=== PATIENT | female | born 1950 | race Caucasian/White ===

== ENCOUNTER → 2017-07-28 | Outpatient (CLI) | payer MEDICARE, BC ==
[2016-02-05 11:14] VITALS: BMI 23.7
[~2017-07-28] MED LIST: ASPI-757 PO; CHOL500045 PO; CIPR-214 PO; CLIN300C99 PO; CYAN250T15 PO; DEX4 PO; DOCU-202 PO; DOCU-416 PO; FAMO20TA28 PO; FLUC200T52 PO; GABA-547 PO; HYDR25CA83 PO; LETR2.5T4 PO; LOR1 PO; LUTE20TA PO; MULT1TAB64 PO; ONDA8TAB94 PO; OXYC-373 PO; PEN400 PO; PER PO; POTA20TA10 PO; PYRI100T57 PO; PYRI100T59 PO; RISE35TA PO; SILV20CR2 TP; VITA-139 PO; [UNRECOGNIZED DRUG - OTHER]
--- NOTE | 2017-07-31 09:43 | RADIOLOGY IMAGING REPORT ---
FACILITY: [facility] PATIENT NAME: LLOYD DIANA : [id number] MR: [id number] V: [id number] EXAM DATE: [id number] ORDERING PHYSICIAN: PATRICK MILLER TECHNOLOGIST: Bianca Evans PROCEDURE:RIGHT DIGITAL DIAGNOSTIC MAMMOGRAM WITH CAD AND 3D BREAST TOMOSYNTHESIS. COMPARISON: Prior mammograms dated 07/20/16 and 07/27/15, INDICATIONS:PRIOR HISTORY OF BREAST CANCER. FINDINGS: A moderate amount of fibroglandular tissue is seen throughout the right breast. The parenchymal pattern has remained stable when allowing for difference in mammographic technique and patient positioning. There is no evidence of malignant appearing mass, malignant appearing calcification or secondary sign of malignancy throughout the right breast. DIAGNOSTIC CATEGORY 1--NEGATIVE. RECOMMENDATIONS: ROUTINE MAMMOGRAM AND CLINICAL EVALUATION. IMPRESSION: Bi-RADS 1: No significant abnormality of the right breast is seen. Dictated by: Tangela Morin M.D. on 07/28/2017 at 15:27 Transcribed by: BRIA on 07/30/2017 at 15:12 Approved by: Tangela Mroin M.D. on 07/31/2017 at 9:41 [facility]
== END ==
LOC: MAMO 12:57
PROVIDERS: ATTEND Radiology Radiation Oncology
DX: C50.912 Malignant neoplasm of unspecified site of left female breast (principal)
CPT/HCPCS: 77065

== ENCOUNTER 2017-08-01 10:30 | Outpatient (RCR) | payer MEDICARE, BC ==
[2016-02-05 11:14] VITALS: BMI 23.7
[2016-05-24 09:04] VITALS: BP 118/76
[~2017-08-01 10:30] MED LIST changes: +ALTEPLASE RECOMB 2 MG VIAL IVP PRN; +DEXTROSE 5%(*) 100 ML BAG 100 ML IVPB PRN; +HEPARIN FLSH (PORT) 500 UN/5ML IVP PRN; +LIDOCAINE/SOD BICARB 8.4% SYR ID PRN; +NS(*) 0.9% 100 ML BAG 100 ML IVPB PRN; +NS(*) 0.9% 500 ML BAG 500 ML IV PRN; +WATER STERILE 10 ML VIAL IVP PRN
== END 2017-09-13 ==
LOC: RAON 10:30
PROVIDERS: ATTEND Nurse Practitioner Family
DX: Z85.3 Personal history of malignant neoplasm of breast (principal); Z92.3 Personal history of irradiation; Z92.21 Personal history of antineoplastic chemotherapy; Z79.899 Other long term (current) drug therapy
CPT/HCPCS: G0463; J1642; 96523; 99212

== ENCOUNTER 2017-10-17 09:30 | Outpatient (RCR) | payer MEDICARE, BC ==
[2016-02-05 11:14] VITALS: Wt 78.2 kg
[2017-09-05 15:21] VITALS: BP 132/68
[2017-09-05 15:29] LABS: PLATELET COUNT, AUTOMATED 251 K/uL (150-450)
[2017-09-07 13:36] VITALS: BP 115/76
--- NOTE | 2017-09-08 08:48 | ONCOLOGY FOLLOW UP NOTE ---
EVENT DATE: September 07, 2017 DIAGNOSIS Stage IIIA left breast cancer. CHIEF COMPLAINT The patient is here today for followup of her left breast cancer on adjuvant hormonal therapy. ONCOLOGY HISTORY The patient is a 67-year-old postmenopausal woman with insignificant past medical history except for partial hysterectomy with left ovary left intact, done in 1978, who palpated a mass in the left breast recently. Bilateral diagnostic digital mammogram done on July 27, 2015 did reveal at least two, possibly three masses, which are extremely dense, irregular and spiculated, one measuring 2.8 cm in diameter, one measuring approximately 2 cm in diameter with fibrotic stranding toward the left pectoralis muscle, which appears to be tented anteriorly toward the mass. There is also nipple retraction on the left and skin indentation along the medial aspect of the left breast. Left breast ultrasound done on July 27, 2015 did reveal several irregular shadowing hypoechoic masses. Ultrasound, core needle biopsy of the two separate masses in the left breast, one in the 9 o'clock lateral position and one in the 10 o' clock medial position. Bilateral breast MRI done on August 06, 2015 revealed two spiculated masses seen on the medial left breast, one at 9 o'clock extending to the skin where there was adjuvant skin thickening and skin retraction. This measured 2 cm. The second lesion at 10 o'clock measured 2.7 cm with suggestion of several adjuvant small satellite lesions as well. The 10 o'clock mass is tenting the left pectoralis muscle anteriorly, but no abnormal enhancement identified within the pectoralis muscle; although immediately deep to the area of tenting there abnormal enhancement seen at the left costochondral articulation, worrisome for metastasis in the left rib/cartilage. There appears to be nipple retraction to the left. No axillary lymphadenopathy or internal mammary adenopathy seen. The patient started neoadjuvant chemotherapy with dose dense AC with Adriamycin and cyclophosphamide on August 27, [address] Diaz, her surgeon. The patient completed four courses of dose dense AC chemotherapy on October 08, 2015. The patient started adjuvant weekly Taxol therapy on October 22, 2015. The patient completed twelve weekly courses of Taxol on January 08, 2016. Following neoadjuvant chemotherapy, the patient had left breast mastectomy and left axillary lymph node dissection done on February 04, 2016. The pathology came back positive for 2.5 cm invasive, poorly differentiated ductal carcinoma. Twelve lymph nodes sampled were positive for metastasis, so the patient's tumor was staged as stage IIIA (pT2 pN2a cM0). The patient started treatment with letrozole on March 17, 2016. HISTORY OF PRESENT ILLNESS Patient is here today for followup of her left breast cancer on adjuvant hormonal therapy. She is doing fine currently. She has some nasal discharge. She has pain in her neck. She has tingling and numbness in the hands and feet. She is weak, tired and fatigued. PAST MEDICAL HISTORY Insignificant. PAST SURGICAL HISTORY 1. Partial hysterectomy with left ovary still intact, done in 1978. 2. Left breast mastectomy and left axillary lymph node dissection done on February 04, 2016. SOCIAL HISTORY The patient is . She has three children. 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 She has about one drink per week. Never smoked. No abuse of illicit drugs. FAMILY HISTORY Negative for cancer or blood diseases. CURRENT MEDICATIONS 1. Zofran 8 mg q.8h. p.r.n. for nausea and vomiting. 2. Ativan 1 mg q.6h. p.r.n. for nausea and vomiting. 3. Compazine 10 mg q.6h. p.r.n. for nausea and vomiting. 4. Letrozole 2.5 mg daily. 5. Vitamin D supplement. 6. Actonel 35 mg weekly. ALLERGIES No known drug allergies. REVIEW OF SYSTEMS CONSTITUTIONAL: Patient has hot flashes with night sweating. HEENT: Ears: No tinnitus or hearing problem. Nose: She has nasal discharge. No epistaxis. Throat: No sore throat or mouth ulcers. Eyes: No diplopia or visual changes. RESPIRATORY: She has cough due to allergy. CARDIOVASCULAR: No chest pain, orthopnea, or paroxysmal nocturnal dyspnea (PND) . No edema. No palpitations. GASTROINTESTINAL: She has intermittent diarrhea. GENITOURINARY: No hematuria or dysuria. MUSCULOSKELETAL: She has pain in the neck. NEUROLOGICAL: She has tingling and numbness in the hands and feet. HEMATOLOGIC/LYMPHATIC: She bruises easily. She is weak, tired and fatigued. SKIN: No skin rash or lumps. PSYCHIATRIC: No anxiety or depression. PHYSICAL EXAMINATION GENERAL: Looks stable. Well-developed, well-nourished, and in no acute distress. VITAL SIGNS: Blood pressure 115/76, pulse 85 per minute, respirations 16 per minute, temperature 97, pulse ox 93% on room air. HEENT: Head: Atraumatic. No sinus tenderness to palpation. Eyes: No icterus or conjunctivitis. Mouth and throat: No oral thrush or mucositis. NECK: Supple. No cervical or supraclavicular lymphadenopathy. LUNGS: Clear to auscultation and percussion bilaterally. HEART: Regular rate and rhythm. No gallops, murmurs, clicks or rubs. ABDOMEN: Soft and lax. No tenderness. No hepatosplenomegaly. No masses. EXTREMITIES: No cyanosis, clubbing or edema. LYMPHATICS: No peripheral lymphadenopathy. NEUROLOGICAL: Conscious, alert and oriented times three. No focal motor or sensory deficits. PSYCHIATRIC: Mood and affect appear normal. SKIN: No skin rash, bruise or purpuric eruption. DIAGNOSTIC DATA CBC showed a white count of 6.4, hemoglobin 14.6, hematocrit 41.5, platelets 251 ,000. Chem panel is normal. CA 27-29 is pending. ASSESSMENT 1. Stage IIIA (pT2 pN2a cM0) left breast cancer, ER/ID positive, HER2/joe negative by FISH. Patient received neoadjuvant chemotherapy with four cycles of dose-dense AC with adriamycin and cyclophosphamide between August 23, 2015 through October 08, 2015. This was followed by 12 weekly doses of Taxol, received between October 22, 2015 through January 08, 2016. Patient after that had left breast mastectomy and left axillary lymph node dissection done February 04, 2016. She started adjuvant hormonal therapy with Letrozole 2.5 mg daily on March 17, 2016. She is doing fine currently except for residual neuropathy from her previous chemotherapy. I am planning to continue Letrozole 2.5 mg daily. I will see her again in three months with CBC, chem panel and CA 27-29. 2. Osteopenia by DEXA scan March 14, 2016. Currently on vitamin D supplement, calcium supplement and Actonel 35 mg weekly. I am planning to repeat her DEXA scan in March this year. 3. Vitamin D deficiency, on vitamin D supplement 2000 units daily. 4. Chemotherapy-induced neuropathy, stable. Will continue to monitor. PLAN 1. Letrozole 2.5 mg daily. 2. Vitamin D 2000 units daily. 3. Actonel 35 mg weekly. 4. Patient is to return in three months with CBC, chem panel and CA 27-29. 5. Patient is to contact us for any new concerns or complaints. [facility]
[~2017-10-17 09:30] MED LIST changes: -PEN400 PO; +PENT400T57 PO
[2017-10-17 09:35] VITALS: BP 122/89
[2017-10-18] MEDS ORDERED: LETR2.5T4 PO (14:33)
== END 2017-10-20 16:16 | disposition home or self-care (01) ==
LOC: SPU 09:30
PROVIDERS: ATTEND Nurse Practitioner Family
DX: C50.912 Malignant neoplasm of unspecified site of left female breast (principal); Z17.0 Estrogen receptor positive status [ER+]; Z92.21 Personal history of antineoplastic chemotherapy; E55.9 Vitamin D deficiency, unspecified; G62.0 Drug-induced polyneuropathy; R53.1 Weakness; R53.83 Other fatigue; Z78.0 Asymptomatic menopausal state; Z79.899 Other long term (current) drug therapy
CPT/HCPCS: 36415; 82378; 84443; 85025; 86300; G0463; 82040; 82247; 82310; 82374; 82435; 82565; 82947; 84075; 84132; 84155; 84295; 84450; 84460; 84520; 99212

== ENCOUNTER 2017-10-17 09:31 | Outpatient (RCR) | payer MEDICARE, BC ==
[2016-02-05 11:14] VITALS: BMI 23.7
[2016-05-24 09:04] VITALS: BP 118/76
[~2017-10-17 09:31] MED LIST changes: -ALTEPLASE RECOMB 2 MG VIAL IVP PRN; -DEXTROSE 5%(*) 100 ML BAG 100 ML IVPB PRN; -HEPARIN FLSH (PORT) 500 UN/5ML IVP PRN; -LIDOCAINE/SOD BICARB 8.4% SYR ID PRN; -NS(*) 0.9% 100 ML BAG 100 ML IVPB PRN; -NS(*) 0.9% 500 ML BAG 500 ML IV PRN; -WATER STERILE 10 ML VIAL IVP PRN
[2017-10-18] MEDS ORDERED: LETR2.5T4 PO (14:33)
== END 2017-11-01 14:33 | disposition home or self-care (01) ==
LOC: RAON 09:31
PROVIDERS: ATTEND Nurse Practitioner Family
DX: C50.912 Malignant neoplasm of unspecified site of left female breast (principal); Z92.21 Personal history of antineoplastic chemotherapy; Z92.3 Personal history of irradiation; Z79.899 Other long term (current) drug therapy
CPT/HCPCS: 99212

== ENCOUNTER 2017-12-14 12:45 | Outpatient (RCR) | payer MEDICARE, BC ==
[2016-02-05 11:14] VITALS: Wt 77.8 kg
[2017-12-07 14:32] VITALS: BP 115/77
[2017-12-13 07:50] VITALS: BP 115/78
[2017-12-13 08:28] LABS: PLATELET COUNT, AUTOMATED 228 K/uL (150-450)
[2017-12-14 13:04] VITALS: BP 113/74
--- NOTE | 2017-12-14 17:15 | ONCOLOGY FOLLOW UP NOTE ---
EVENT DATE: December 14, 2017 DIAGNOSIS Stage IIIA left breast cancer. CHIEF COMPLAINT The patient is here today for followup of her left breast cancer on adjuvant hormonal therapy. ONCOLOGY HISTORY The patient is a 67-year-old postmenopausal woman with insignificant past medical history except for partial hysterectomy with left ovary left intact, done in 1978, who palpated a mass in the left breast recently. Bilateral diagnostic digital mammogram done on July 27, 2015 did reveal at least two, possibly three masses, which are extremely dense, irregular and spiculated, one measuring 2.8 cm in diameter, one measuring approximately 2 cm in diameter with fibrotic stranding toward the left pectoralis muscle, which appears to be tented anteriorly toward the mass. There is also nipple retraction on the left and skin indentation along the medial aspect of the left breast. Left breast ultrasound done on July 27, 2015 did reveal several irregular shadowing hypoechoic masses. Ultrasound, core needle biopsy of the two separate masses in the left breast, one in the 9 o'clock lateral position and one in the 10 o' clock medial position. Bilateral breast MRI done on August 06, 2015 revealed two spiculated masses seen on the medial left breast, one at 9 o'clock extending to the skin where there was adjuvant skin thickening and skin retraction. This measured 2 cm. The second lesion at 10 o'clock measured 2.7 cm with suggestion of several adjuvant small satellite lesions as well. The 10 o'clock mass is tenting the left pectoralis muscle anteriorly, but no abnormal enhancement identified within the pectoralis muscle; although immediately deep to the area of tenting there abnormal enhancement seen at the left costochondral articulation, worrisome for metastasis in the left rib/cartilage. There appears to be nipple retraction to the left. No axillary lymphadenopathy or internal mammary adenopathy seen. The patient started neoadjuvant chemotherapy with dose dense AC with Adriamycin and cyclophosphamide on August 27, [address] Diaz, her surgeon. The patient completed four courses of dose dense AC chemotherapy on October 08, 2015. The patient started adjuvant weekly Taxol therapy on October 22, 2015. The patient completed twelve weekly courses of Taxol on January 08, 2016. Following neoadjuvant chemotherapy, the patient had left breast mastectomy and left axillary lymph node dissection done on February 04, 2016. The pathology came back positive for 2.5 cm invasive, poorly differentiated ductal carcinoma. Twelve lymph nodes sampled were positive for metastasis, so the patient's tumor was staged as stage IIIA (pT2 pN2a cM0). The patient started treatment with letrozole on March 17, 2016. HISTORY OF PRESENT ILLNESS Patient is here today for followup of her left breast cancer on adjuvant hormonal therapy. She is doing fine currently. She has some night sweats sometimes. She has nasal discharge. She has cough and shortness of breath because of the smoke in the air. She has pain in the neck since her radiation therapy with stiffness. She has tingling and numbness in the hands and feet from her previous chemotherapy. She is weak, tired and fatigued. PAST MEDICAL HISTORY Insignificant. PAST SURGICAL HISTORY 1. Partial hysterectomy with left ovary still intact, done in 1978. 2. Left breast mastectomy and left axillary lymph node dissection done on February 04, 2016. SOCIAL HISTORY The patient is . She has three children. 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 She has about one drink per week. Never smoked. No abuse of illicit drugs. FAMILY HISTORY Negative for cancer or blood diseases. CURRENT MEDICATIONS 1. Zofran 8 mg q.8h. p.r.n. for nausea and vomiting. 2. Ativan 1 mg q.6h. p.r.n. for nausea and vomiting. 3. Compazine 10 mg q.6h. p.r.n. for nausea and vomiting. 4. Letrozole 2.5 mg daily. 5. Vitamin D supplement. 6. Actonel 35 mg weekly. ALLERGIES No known drug allergies. REVIEW OF SYSTEMS CONSTITUTIONAL: Patient has night sweats. HEENT: Ears: No tinnitus or hearing problem. Nose: She has nasal discharge. No epistaxis. Throat: No sore throat or mouth ulcers. Eyes: No diplopia or visual changes. RESPIRATORY: She has cough and shortness of breath from the smoke in the air. CARDIOVASCULAR: No chest pain, orthopnea, or paroxysmal nocturnal dyspnea (PND) . No edema. No palpitations. GASTROINTESTINAL: She has intermittent diarrhea. GENITOURINARY: No hematuria or dysuria. MUSCULOSKELETAL: She has pain and stiffness in the neck since her radiation therapy. NEUROLOGICAL: She has tingling and numbness in the hands and feet. HEMATOLOGIC/LYMPHATIC: She bruises easily. She is weak, tired and fatigued. SKIN: No skin rash or lumps. PSYCHIATRIC: No anxiety or depression. PHYSICAL EXAMINATION GENERAL: Looks stable. Well-developed, well-nourished, and in no acute distress. VITAL SIGNS: Blood pressure 113/74, pulse 87 per minute, respirations 16 per minute, temperature 98.9, pulse ox 94% on room air. HEENT: Head: Atraumatic. No sinus tenderness to palpation. Eyes: No icterus or conjunctivitis. Mouth and throat: No oral thrush or mucositis. NECK: Supple. No cervical or supraclavicular lymphadenopathy. LUNGS: Clear to auscultation and percussion bilaterally. HEART: Regular rate and rhythm. No gallops, murmurs, clicks or rubs. ABDOMEN: Soft and lax. No tenderness. No hepatosplenomegaly. No masses. EXTREMITIES: No cyanosis, clubbing or edema. LYMPHATICS: No peripheral lymphadenopathy. NEUROLOGICAL: Conscious, alert and oriented times three. No focal motor or sensory deficits. PSYCHIATRIC: Mood and affect appear normal. SKIN: No skin rash, bruise or purpuric eruption. DIAGNOSTIC DATA CBC showed a white count of 4.1, hemoglobin 14.9, hematocrit 42.9, platelets 228 ,000. Chem panel is totally normal. CA 15-3 is 43, which is up from 42. CA 27 -29 is 49, which is up from 45.3. CEA is normal at 1.5, but up from 1.3. ASSESSMENT 1. Stage IIIA (pT2 pN2a cM0) left breast cancer, ER/[place] positive, HER2/joe negative by FISH. Patient received neoadjuvant chemotherapy with four cycles of dose-dense AC with adriamycin and cyclophosphamide between August 23, 2015 through October 08, 2015. This was followed by 12 weekly doses of Taxol, received between October 22, 2015 through January 08, 2016. After that patient had left breast mastectomy and left axillary lymph node dissection done February 04, 2016. She started adjuvant hormonal therapy with Letrozole 2.5 mg daily on March 17, 2016. She is doing fine currently. Her tumor markers with CA 27-29, CA 15- 3 are slightly rising. CA 15-3 increased by one point from 42 to 43, and CA 27- 29 increased from 45.3 to 49. I am planning to see her again in two months from now with CBC, chem panel, CA 27-29, CA 15-3 and CEA for further evaluation and management. If her tumor markers continue to rise, I am planning to get a PET scan for further evaluation. 2. Stiffness in her left side of the neck with pain from the affect of radiation therapy. I am planning to refer the patient to Physical Therapy. 3. Osteopenia by DEXA scan March 14, 2016. Currently on vitamin D supplement, calcium supplement and Actonel 35 mg weekly. I am planning to repeat her DEXA scan in March this year. 4. Vitamin D deficiency, on vitamin D supplement 2000 units daily. 5. Chemotherapy-induced neuropathy, stable. Will continue to monitor. PLAN 1. Letrozole 2.5 mg daily. 2. Vitamin D 2000 units daily. 3. Actonel 35 mg weekly. 4. Patient is to return in two months with CBC, chem panel and CA 27-29. 5. Patient is to contact us for any new concern or complaints. [facility]
== END 2018-01-26 09:54 | disposition home or self-care (01) ==
LOC: ONC 12:45
PROVIDERS: ATTEND Internal Medicine Hematology
DX: C50.912 Malignant neoplasm of unspecified site of left female breast (principal); Z17.0 Estrogen receptor positive status [ER+]; Z79.811 Long term (current) use of aromatase inhibitors; Z92.21 Personal history of antineoplastic chemotherapy; Z92.3 Personal history of irradiation; M85.80 Other specified disorders of bone density and structure, unspecified site; E55.9 Vitamin D deficiency, unspecified; G62.0 Drug-induced polyneuropathy; R53.1 Weakness; R53.83 Other fatigue; R05 Cough; R06.02 Shortness of breath
CPT/HCPCS: 36415; 82378; 85025; 86300; G0463; 82040; 82247; 82310; 82374; 82435; 82565; 82947; 84075; 84132; 84155; 84295; 84450; 84460; 84520; 99212

== ENCOUNTER 2018-03-22 07:00 | Outpatient (RCR) | payer MEDICARE, BC ==
[2016-02-05 11:14] VITALS: BMI 23.7
--- NOTE | 2017-12-26 08:41 | PT INITIAL EVALUATION ---
MEDICAL DIAGNOSIS: Stage III breast cancer, neck pain TREATMENT DIAGNOSIS: same DATE OF ONSET: 07/03/16 SUBJECTIVE: Deidra Beltre presents to physical therapy with complaints of neck pain that started approximately 1.5 years ago following radiation treatments. She reports that she has 12 lymph nodes removed and months of chemo and radiation with severe hodges around her L side of her neck, shoulder, and breast regions. She reports that she previously did PT for her L shoulder and currently has full range of motion and continues to be painfree and states that she would like to do the same to her neck so that she can start the process of reconstruction. She rates her neck pain to be 6/10 to 9/10 depending on her current functional activity. She reports that her pain is worse with turning and lying on her L side and better with bending, sitting, and lying on her R side. She reports that she currently does not have any feeling in her hands and feet due to the chemo treatments that she received for her cancer. Furthermore, she reports that she has tinnitus in her L ear as well. She states that nothing has helped reduce her neck pain thus far in the form of creams or medications. She describes the pain to be achy, numbness, and tingling. 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 Pain location is L side of her neck, UT, Scalenes, SCM, radiating to ear and head, and levator scapulae. 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 flexion: minimal reconstruction with stretch/muscular end feel. retraction: minimal restriction with painful end feel. extension: major restriction with painful end feel. lateral flexion R: major restriction with painful end feel. lateral flexion L: minimal restriction with muscular end feel. rotation R: major restriction with painful end feel. rotation L: NIL with painful end feel. Palpation: TTP: L side of her neck: C0-T4 facet, UT, levator scapulae, scalenes , SCM Sensation: Decreased/abolished sensation: C7-T1 B Special Tests: Repeated RET, Extension, flexion, LF R/L, ROT R/L: pain during the test with same following the test. Mobility: Independent ASSESSMENT: Deidra Beltre will benefit from skilled physical therapy addressing the listed impairments to improve function and QOL. Based on signs and symptoms, her provisional classification is dysfunction as a result of the radiation, which requires 6-20 weeks for the remodeling process to occur so that the muscle tightness and pain can be abolished or alleviated. Short Term Goals 2 weeks: Pt will be independent with her home exercise program. 6 weeks: Pt will demonstrate 25% improvement in cervical AROM in all directions to improve function and QOL. 10 weeks: Pt will demonstrate 50% improvement in cervical AROM in all directions to improve function and QOL. 18 weeks: Pt will demonstrate 100% improvement in cervical AROM in all directions to improve function and QOL. Patient's Goals improve range of motion and reduce pain PLAN: Patient to be seen for Manual Therapy/STM/MET Strengthening/condition Range of Motion Spinal Stabilization Work Hardening/Cond Stretching Neuromuscular Re-ed Closed Chain Program Home Exercise Program Therapeutic Activities 2x/Week for 4 Months If you have any questions, comments, or concerns about this report or plan, please contact me at . Thank you, Hay Tinsley, PT, DPT [facility]
--- NOTE | 2018-01-31 15:26 | PT PLAN OF CARE ---
Physician: JULI Jolly Patient is being seen: 2x/week Therapist: Hay Tinsley, PT, DPT Medical Diagnosis: Stage III breast cancer, neck pain Treatment Diagnosis: same Date of Onset: 07/03/16 Date of Initial Evaluation: 12/25/17 Date patient was last seen: 01/30/18 Number of treatments: 11 Number of cancellations/No shows: 0 INTERVENTIONS: Manual Therapy/STM/MET Strengthening/condition Range of Motion Spinal Stabilization Work Hardening/Cond Stretching Neuromuscular Re-ed Closed Chain Program Home Exercise Program Therapeutic Activities GOALS: 2 weeks: Pt will be independent with her home exercise program. 6 weeks: Pt will demonstrate 25% improvement in cervical AROM in all directions to improve function and QOL. MET 10 weeks: Pt will demonstrate 50% improvement in cervical AROM in all directions to improve function and QOL. MET 18 weeks: Pt will demonstrate 100% improvement in cervical AROM in all directions to improve function and QOL. PATIENT'S GOAL: improve range of motion and reduce pain Status of Patient's Goals: Progressing well Patient Compliance: Good Prognosis: Excellent Reasons for continuing therapy: This is a progress note for Deidra Beltre. She reports that she feels like she is doing much better. She reports that her neck motion has signficantly increased. She reports that she continues to have pain especially after sitting for a while and not moving her neck/head and then moving her head and neck again. She rates her pain to be 4/10 and describes it to be burning with an increase in burning and intensity following each session and rates it to be 6/10. She reports that she is able to turn her head while driving versus moving her whole body. She demonstrates equal cervical AROM in all directions; however, she continues to have empty end feels with R sidebending and extension with R rotation. She demonstrates improvements with 1st rib, cervical spinal accessory mobility, and increased scar/soft tissue mobility. We will continue to improve soft tissue mobility, cervical/1st rib mobility, increased cervical AROM, and reduce overall pain to improve function and QOL. Posture: She demonstrated excellent posture with B ears in line with B shoulders and B shoulders in line with B hips with normal curvature from cervical to lumbar spine ROM: Cervical AROM: protrusion: NIL with normal end feel. flexion: NIL with stretch/muscular end feel. retraction: NIL with stretch/muscular end feel. extension: minimal restriction with painful end feel. lateral flexion R: minimal restriction with painful end feel. lateral flexion L: NIL with muscular end feel. rotation R: minimal restriction with stretch/muscular end feel. rotation L: NIL with painful end feel. Strength: Palpation: TTP: L side of her neck: C0-T4 facet, UT, levator scapulae, scalenes , SCM Special Tests: Repeated RET, Extension, flexion, LF R/L, ROT R/L: pain during the test with same following the test. Mobility: Independent If you have any questions, please contact me at [phone]. Thank you, Hay Tinsley, PT, DPT [facility]
== END 2018-03-25 ==
LOC: PT 07:00
PROVIDERS: ATTEND Nurse Practitioner Family
DX: M54.2 Cervicalgia (principal); C50.919 Malignant neoplasm of unspecified site of unspecified female breast; Z85.3 Personal history of malignant neoplasm of breast; Z92.21 Personal history of antineoplastic chemotherapy; H93.12 Tinnitus, left ear; G62.0 Drug-induced polyneuropathy
CPT/HCPCS: 97162

== ENCOUNTER 2018-04-17 10:00 | Outpatient (RCR) | payer MEDICARE, BC ==
[2016-02-05 11:14] VITALS: BMI 23.7
[2018-04-13 08:15] VITALS: BP 136/87
[2018-04-13 08:24] LABS: PLATELET COUNT, AUTOMATED 268 K/uL (150-450)
[2018-04-17] MEDS ORDERED: MAGN100T PO (10:14)
== END 2018-04-30 14:20 | disposition home or self-care (01) ==
LOC: RAON 10:00
PROVIDERS: ATTEND Radiology Radiation Oncology
DX: C50.912 Malignant neoplasm of unspecified site of left female breast (principal); Z92.21 Personal history of antineoplastic chemotherapy; Z92.3 Personal history of irradiation; Z79.811 Long term (current) use of aromatase inhibitors; G62.9 Polyneuropathy, unspecified; R53.83 Other fatigue
CPT/HCPCS: 36415; 84443; 85025; 86300; G0463; 82040; 82247; 82310; 82374; 82435; 82565; 82947; 84075; 84132; 84155; 84295; 84450; 84460; 84520; 99212

== ENCOUNTER 2018-05-07 08:40 | Outpatient (RCR) | payer MEDICARE, BC ==
[2016-02-05 11:14] VITALS: Wt 76.7 kg
[2018-02-08 08:40] VITALS: BP 119/85
[2018-02-08 08:59] LABS: PLATELET COUNT, AUTOMATED 256 K/uL (150-450)
[2018-02-23 16:29] VITALS: BP 124/80
--- NOTE | 2018-02-23 17:45 | ONCOLOGY FOLLOW UP NOTE ---
EVENT DATE: February 23, 2018 DIAGNOSIS Stage IIIA left breast cancer. CHIEF COMPLAINT The patient is here today for followup of her left breast cancer on adjuvant hormonal therapy. ONCOLOGY HISTORY The patient is a 68-year-old postmenopausal woman with insignificant past medical history except for partial hysterectomy with left ovary left intact, done in 1978, who palpated a mass in the left breast recently. Bilateral diagnostic digital mammogram done on July 27, 2015 did reveal at least two, possibly three masses, which are extremely dense, irregular and spiculated, one measuring 2.8 cm in diameter, one measuring approximately 2 cm in diameter with fibrotic stranding toward the left pectoralis muscle, which appears to be tented anteriorly toward the mass. There is also nipple retraction on the left and skin indentation along the medial aspect of the left breast. Left breast ultrasound done on July 27, 2015 did reveal several irregular shadowing hypoechoic masses. Ultrasound, core needle biopsy of the two separate masses in the left breast, one in the 9 o'clock lateral position and one in the 10 o'clock medial position. Bilateral breast MRI done on August 06, 2015 revealed two spiculated masses seen on the medial left breast, one at 9 o'clock extending to the skin where there was adjuvant skin thickening and skin retraction. This measured 2 cm. The second lesion at 10 o'clock measured 2.7 cm with suggestion of several adjuvant small satellite lesions as well. The 10 o'clock mass is tenting the left pectoralis muscle anteriorly, but no abnormal enhancement identified within the pectoralis muscle; although immediately deep to the area of tenting there abnormal enhancement seen at the left costochondral articulation, worrisome for metastasis in the left rib/cartilage. There appears to be nipple retraction to the left. No axillary lymphadenopathy or internal mammary adenopathy seen. The patient started neoadjuvant chemotherapy with dose dense AC with Adriamycin and cyclophosphamide on August 27, [address] Diaz, her surgeon. The patient completed four courses of dose dense AC chemotherapy on October 08, 2015. The patient started adjuvant weekly Taxol therapy on October 22, 2015. The patient completed twelve weekly courses of Taxol on January 08, 2016. Following neoadjuvant chemotherapy, the patient had left breast mastectomy and left axillary lymph node dissection done on February 04, 2016. The pathology came back positive for 2.5 cm invasive, poorly differentiated ductal carcinoma. Twelve lymph nodes sampled were positive for metastasis, so the patient's tumor was staged as stage IIIA (pT2 pN2a cM0). The patient started treatment with letrozole on March 17, 2016. HISTORY OF PRESENT ILLNESS Patient is here today for followup of her left breast cancer on adjuvant hormonal therapy. She is doing fine currently. She is complaining of sweating, nasal discharge, constipation. She had neuropathy in her hands and feet, lips and tongue with numbness. She bruises easily. She has mild fatigue sometimes. PAST MEDICAL HISTORY Insignificant. PAST SURGICAL HISTORY 1. Partial hysterectomy with left ovary still intact, done in 1978. 2. Left breast mastectomy and left axillary lymph node dissection done on February 04, 2016. SOCIAL HISTORY The patient is . She has three children. 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 She has about one drink per week. Never smoked. No abuse of illicit drugs. FAMILY HISTORY Negative for cancer or blood diseases. CURRENT MEDICATIONS 1. Zofran 8 mg q.8h. p.r.n. for nausea and vomiting. 2. Ativan 1 mg q.6h. p.r.n. for nausea and vomiting. 3. Compazine 10 mg q.6h. p.r.n. for nausea and vomiting. 4. Letrozole 2.5 mg daily. 5. Vitamin D supplement. 6. Actonel 35 mg weekly. ALLERGIES No known drug allergies. REVIEW OF SYSTEMS CONSTITUTIONAL: No appetite or weight change. No fever, chills. The patient has sweating. No recent infection. HEENT: Ears: No tinnitus or hearing problem. Nose: She has nasal discharge. No epistaxis. Throat: No sore throat or mouth ulcers. Eyes: No diplopia or visual changes. RESPIRATORY: No shortness of breath. She has cough. No expectoration or hemoptysis. CARDIOVASCULAR: No chest pain, orthopnea, or paroxysmal nocturnal dyspnea (PND). No edema. No palpitations. GASTROINTESTINAL: No nausea or vomiting. No diarrhea. She has constipation. No heartburn or swallowing difficulties. No abdominal pain. No jaundice. No hematemesis, melena or rectal bleeding. GENITOURINARY: No hematuria or dysuria. MUSCULOSKELETAL: No pain in the muscles, joints or bones. NEUROLOGICAL: She has neuropathy in the hands and feet, lips and tongue. HEMATOLOGIC/LYMPHATIC: No bleeding. She bruises easily. She has mild fatigue. No enlarged lymph nodes. SKIN: No skin rash or lumps. PSYCHIATRIC: No anxiety or depression. PHYSICAL EXAMINATION GENERAL: Looks stable. Well-developed, well-nourished, and in no acute distress. VITAL SIGNS: Blood pressure 124/80, pulse 81 per minute, respirations 16 per minute, temperature 97.3, pulse ox 91% on room air. HEENT: Head: Atraumatic. No sinus tenderness to palpation. Eyes: No icterus or conjunctivitis. Mouth and throat: No oral thrush or mucositis. NECK: Supple. No cervical or supraclavicular lymphadenopathy. LUNGS: Clear to auscultation and percussion bilaterally. HEART: Regular rate and rhythm. No gallops, murmurs, clicks or rubs. ABDOMEN: Soft and lax. No tenderness. No hepatosplenomegaly. No masses. EXTREMITIES: No cyanosis, clubbing or edema. LYMPHATICS: No peripheral lymphadenopathy. NEUROLOGICAL: Conscious, alert and oriented times three. No focal motor or sensory deficits. PSYCHIATRIC: Mood and affect appear normal. SKIN: No skin rash, bruise or purpuric eruption. DIAGNOSTIC DATA Chem panel is totally normal except alkaline phosphatase 136. Her CA 15-3 is 50, which is up from 43, and CA 27-29 is 53.9, which is up from 49. CEA is normal at 1.3, which is down from 1.5 last visit. CBC showed white count 4.9, hemoglobin 16.3, hematocrit 46 and platelet count 256,000. PET CT scan done on February 22, 2018 did not show any evidence of FDG avid metastatic disease. There are some stable tiny sclerotic bone lesions which are negative by PET. ASSESSMENT 1. Stage IIIA (pT2 pN2a cM0) left breast cancer, ER/NM positive, HER2/joe negative by FISH. Patient received neoadjuvant chemotherapy with four cycles of dose-dense AC with adriamycin and cyclophosphamide between August 23, 2015 through October 08, 2015. This was followed by 12 weekly doses of Taxol, received between October 22, 2015 through January 08, 2016. After that patient had left breast mastectomy and left axillary lymph node dissection done February 04, 2016. She started adjuvant hormonal therapy with Letrozole 2.5 mg daily on March 17, 2016. She is doing fine currently. Her tumor markers with CA 27-29, CA 15-3 are rising gradually. For this reason a PET CT scan done on February 22, 2018 did not show any evidence of FDG avid metastatic disease. I am planning to see the patient again in three months and I will repeat her markers at that time, so I will check her in three months with CBC, chem panel, CA 27-29, CA 15-3 and CEA. The patient is happy with the result of her PET scan today. 2. Osteopenia by DEXA scan done March 14, 2016. Currently on vitamin D supplement, calcium supplement and Actonel 35 mg weekly. I will repeat her DEXA scan with her next visit. 3. Vitamin D deficiency, on vitamin D supplement 2000 units daily. 4. Chemotherapy-induced neuropathy, stable. Will continue to monitor. PLAN 1. Continue Letrozole 2.5 mg daily. 2. Vitamin D 2000 units daily. 3. Actonel 35 mg weekly. 4. Patient is to return in three months with CBC, chem panel, CEA, CA 27-29, CA 15-3 and DEXA scan. 5. Patient is to contact us for any new concerns or complaints. MTDD
[~2018-05-07 08:40] MED LIST changes: +MAGN100T PO
[2018-05-07 08:52] VITALS: BP 110/82
[2018-05-07 09:11] LABS: PLATELET COUNT, AUTOMATED 293 K/uL (150-450)
== END 2018-05-08 ==
LOC: SPU 08:40
PROVIDERS: ATTEND Internal Medicine Hematology
DX: C50.912 Malignant neoplasm of unspecified site of left female breast (principal); Z17.0 Estrogen receptor positive status [ER+]; Z79.811 Long term (current) use of aromatase inhibitors; Z92.21 Personal history of antineoplastic chemotherapy; Z92.3 Personal history of irradiation; M85.80 Other specified disorders of bone density and structure, unspecified site; E55.9 Vitamin D deficiency, unspecified; G62.0 Drug-induced polyneuropathy; R53.1 Weakness; R53.83 Other fatigue; R05 Cough
CPT/HCPCS: 36415; 82378; 85025; 86300; G0463; 82040; 82247; 82310; 82374; 82435; 82565; 82947; 84075; 84132; 84155; 84295; 84450; 84460; 84520; 99212

== ENCOUNTER → 2018-05-09 | Outpatient (CLI) | payer MEDICARE, BC ==
[2016-02-05 11:14] VITALS: BMI 23.7
--- NOTE | 2018-05-09 16:03 | RADIOLOGY IMAGING REPORT ---
FACILITY: [facility] - [place] PATIENT NAME: Deidra Beltre : 1950 MR: [id number] V: [id number] EXAM DATE: ORDERING PHYSICIAN: LILIBETH LEWIS TECHNOLOGIST: Location: [facility] [place] Patient: Deidra Beltre : 1950 Visit/Account:[id number] Date of Sevice: 05/09/2018 DEXA Scan Clinical history: Osteoporosis screening. Comparison: 03/14/2016. LUMBAR SPINE: Bone mineral density (BMD) measured in the lumbar spine correlates with a T-score of -2.7 and a Z-sco re of -1.4 which is osteoporosis as defined by the World Health Organization. Degenerative changes a re present in the lumbar spine which may falsely increase bone density. The corresponding risk of fr acture in the lumbar spine is increased compared with a young adult reference population. Lumbar spi ne bone density has decreased by 5.5% compared to previous. LEFT FEMORAL NECK: Bone mineral density (BMD) measured in the femoral neck correlates with a T-score of -2.3 and a Z-sco re of -1.0 which is osteopenia as defined by the World Health Organization. Bone mineral density (BMD) measured in the femoral neck region is 0.717 g/cm2. LEFT TOTAL HIP: Total hip bone mineral density (BMD) correlates with a T-score of -2.0 and a Z-score of -0.9 which is osteopenia as defined by the World Health Organization. Total hip bone density has increased by 4.7 % compared to previous. The corresponding risk of fracture in the hip is increased compared with a young adult reference popu [facility]. IMPRESSION: 1. Lumbar spine: Osteoporosis. Lumbar spine bone density has decreased by 5.5% compared to previou s. 2. Left femoral neck: Osteopenia. 3. Left femoral neck: Bone Mineral Density is 0.717 g/cm2. 4. Left total hip: Osteopenia. Total hip bone density has increased by 4.7% compared to previous. FRAX WHO Fracture Risk Assessment Tool link: <http://www.shef.ac.uk/FRAX/tool.jsp?[email or web address]> PLEASE NOTE: 1) The World Health Organization defines low BMD as follows: T-score Normal > -1 Osteopenia < -1 and > -2.5 Osteoporosis < -2.5 without fractures Established osteoporosis < -2.5 with fractures 2) In general, you may wish to consider: Diagnosis Treatment Follow-up DEXA Normal BMD Prevention 2-3 years Osteopenia Prevention/therapy 1-2 years Osteoporosis Therapy Yearly 3) Fracture risk estimated from the T-score is more accurate for vertebral fractures (often spontane ous) than for hip fractures. Report Dictated By: Baljeet Lopez MD at 05/09/2018 3:54 PM Report E-Signed By: Baljeet Lopez MD at 05/09/2018 3:58 PM WSN:[email or web address]
== END ==
LOC: RAD 13:08
PROVIDERS: ATTEND Internal Medicine Hematology
DX: M81.0 Age-related osteoporosis without current pathological fracture (principal); M85.80 Other specified disorders of bone density and structure, unspecified site; C50.912 Malignant neoplasm of unspecified site of left female breast; Z17.0 Estrogen receptor positive status [ER+]; Z78.0 Asymptomatic menopausal state
CPT/HCPCS: 77080

== ENCOUNTER 2018-07-19 07:00 | Outpatient (RCR) | payer MEDICARE, BC ==
[2016-02-05 11:14] VITALS: BMI 23.7
--- NOTE | 2018-06-28 07:55 | PT PLAN OF CARE ---
Physician: LILIBETH LEWIS MD Patient is being seen: 2x/week Therapist: Hay Tinsley, PT, DPT Medical Diagnosis: Stage III breast cancer, neck pain Treatment Diagnosis: same Date of Onset: 07/03/16 Date of Initial Evaluation: 12/25/17 Date patient was last seen: 06/28/18 Number of treatments: 47 Number of cancellations/No shows: 0 INTERVENTIONS: Manual Therapy/STM/MET Strengthening/condition Range of Motion Spinal Stabilization Work Hardening/Cond Stretching Neuromuscular Re-ed Closed Chain Program Home Exercise Program Therapeutic Activities GOALS: 2 weeks: Pt will be independent with her home exercise program. MET 6 weeks: Pt will demonstrate 25% improvement in cervical AROM in all directions to improve function and QOL. MET 10 weeks: Pt will demonstrate 50% improvement in cervical AROM in all directions to improve function and QOL. MET 18 weeks: Pt will demonstrate 100% improvement in cervical AROM in all directions to improve function and QOL. MET PATIENT'S GOAL: improve range of motion and reduce pain: progressing well Status of Patient's Goals: Progressing well Patient Compliance: Excellent Prognosis: Excellent Reasons for continuing therapy: This is a progress note for Deidra Beltre. She reports that she feels like her neck is doing well. She reports that she feels like her neck motion is back to normal. She reports that the neck no longer tightens up as she states that she continually performs her specific exercises every 2 to 3 hours. She reports that she continues to have tingling and burning but states that it feels so much better. She continues to demonstrate the following improvements: increased cervical AROM in all directions, increased accessory mobility, decreased burning and tingling, and she continues to be independent with her specific exercises. We will close out the year and then discharge to home exercise program in the next 2-10 sessions. Posture: She demonstrated excellent posture with B ears in line with B shoulders and B shoulders in line with B hips with normal curvature from cervical to lumbar spine ROM: Cervical AROM: protrusion: NIL with normal end feel. flexion: NIL with stretch/muscular end feel. retraction: NIL with stretch/muscular end feel. extension: NIL with normal end feel. lateral flexion R: NIL with normal end feel. lateral flexion L: NIL with muscular end feel. rotation R: NIL with stretch/muscular end feel. rotation L: NIL with normal end feel. Special Tests: Repeated RET, Extension, flexion, LF R/L, ROT R/L: pain during the test with same following the test. Mobility: Independent If you have any questions, please contact me at [phone]. Thank you, Hay Tinsley, PT, DPT [facility]
--- NOTE | 2018-07-19 07:55 | PT PLAN OF CARE ---
Physician: LILIBETH LEWIS MD Patient is being seen: 2x/week Therapist: Hay Tinsley, PT, DPT Medical Diagnosis: Stage III breast cancer, neck pain Treatment Diagnosis: same Date of Onset: 07/03/16 Date of Initial Evaluation: 12/25/17 Date patient was last seen: 07/19/18 Number of treatments: 54 Number of cancellations/No shows: 0 INTERVENTIONS: Manual Therapy/STM/MET Strengthening/condition Range of Motion Spinal Stabilization Work Hardening/Cond Stretching Neuromuscular Re-ed Closed Chain Program Home Exercise Program Therapeutic Activities GOALS: 2 weeks: Pt will be independent with her home exercise program. MET 6 weeks: Pt will demonstrate 25% improvement in cervical AROM in all directions to improve function and QOL. MET 10 weeks: Pt will demonstrate 50% improvement in cervical AROM in all directions to improve function and QOL. MET 18 weeks: Pt will demonstrate 100% improvement in cervical AROM in all directions to improve function and QOL. MET PATIENT'S GOAL: improve range of motion and reduce pain: MET Status of Patient's Goals: Progressing well Patient Compliance: Excellent Prognosis: Excellent Reasons for continuing therapy: This is a discharge note for Deidra Beltre. She reports that she is doing well. She reports that she feels like she is independent with her home exercise program. She reports that she has minimal tingling superior to the radiation hodges. She reports that she continues to maintain her full cervical AROM in all directions. She reports that she barely feels a stretch, which she states is a significant improvement. She demonstrates full cervical AROM, minimal accessory limitations in her scalenes, full L shoulder AROM, return to prior level with strength in cervical spine along with L shoulder, and she is independent in her home exercise program. She has met all of her goals. As a result, she will be discharged from PT to [facility]. Posture: She demonstrated excellent posture with B ears in line with B shoulders and B shoulders in line with B hips with normal curvature from cervical to lumbar spine ROM: Cervical AROM: protrusion: NIL with normal end feel. flexion: NIL with stretch/muscular end feel. retraction: NIL with stretch/muscular end feel. extension: NIL with normal end feel. lateral flexion R: NIL with normal end feel. lateral flexion L: NIL with muscular end feel. rotation R: NIL with stretch/muscular end feel. rotation L: NIL with normal end feel. Mobility: Independent If you have any questions, please contact me at [phone]. Thank you, Hay Tisnley PT, DPT [facility]
== END 2018-07-19 18:00 | disposition home or self-care (01) ==
LOC: PT 07:00
PROVIDERS: ATTEND Internal Medicine Hematology
DX: M54.2 Cervicalgia (principal); C50.912 Malignant neoplasm of unspecified site of left female breast

== ENCOUNTER 2018-08-06 08:00 | Outpatient (RCR) | payer MEDICARE, BC ==
[2016-02-05 11:14] VITALS: Wt 76.4 kg
[2018-05-11 08:38] VITALS: BP 114/76
--- NOTE | 2018-05-12 07:46 | [facility] ONCOLOGY NOTE ---
EVENT DATE: May 11, 2018 DIAGNOSIS Stage IIIA left breast cancer. CHIEF COMPLAINT The patient is here today for followup of her left breast cancer on adjuvant hormonal therapy with letrozole. ONCOLOGY HISTORY The patient is a 68-year-old postmenopausal woman with insignificant past medical history except for partial hysterectomy with left ovary left intact, done in 1978, who palpated a mass in the left breast recently. Bilateral diagnostic digital mammogram done on July 27, 2015 did reveal at least two, possibly three masses, which are extremely dense, irregular and spiculated, one measuring 2.8 cm in diameter, one measuring approximately 2 cm in diameter with fibrotic stranding toward the left pectoralis muscle, which appears to be tented anteriorly toward the mass. There is also nipple retraction on the left and skin indentation along the medial aspect of the left breast. Left breast ultrasound done on July 27, 2015 did reveal several irregular shadowing hypoechoic masses. Ultrasound, core needle biopsy of the two separate masses in the left breast, one in the 9 o'clock lateral position and one in the 10 o'clock medial position. Bilateral breast MRI done on August 06, 2015 revealed two spiculated masses seen on the medial left breast, one at 9 o'clock extending to the skin where there was adjuvant skin thickening and skin retraction. This measured 2 cm. The second lesion at 10 o'clock measured 2.7 cm with suggestion of several adjuvant small satellite lesions as well. The 10 o'clock mass is tenting the left pectoralis muscle anteriorly, but no abnormal enhancement identified within the pectoralis muscle; although immediately deep to the area of tenting there abnormal enhancement seen at the left costochondral articulation, worrisome for metastasis in the left rib/cartilage. There appears to be nipple retraction to the left. No axillary lymphadenopathy or internal mammary adenopathy seen. The patient started neoadjuvant chemotherapy with dose dense AC with Adriamycin and cyclophosphamide on August 27, [address] Diaz, her surgeon. The patient completed four courses of dose dense AC chemotherapy on October 08, 2015. The patient started adjuvant weekly Taxol therapy on October 22, 2015. The patient completed twelve weekly courses of Taxol on January 08, 2016. Following neoadjuvant chemotherapy, the patient had left breast mastectomy and left axillary lymph node dissection done on February 04, 2016. The pathology came back positive for 2.5 cm invasive, poorly differentiated ductal carcinoma. Twelve lymph nodes sampled were positive for metastasis, so the patient's tumor was staged as stage IIIA (pT2 pN2a cM0). The patient started treatment with letrozole on March 17, 2016. HISTORY OF PRESENT ILLNESS Patient is here today for followup of her left breast cancer on adjuvant hormonal therapy with letrozole. She is doing fine currently except for some hot flashes. She has nasal discharge. She is complaining of dry cough and constipation. She has some pain at the site of her radiation therapy, which is getting better. She has tingling and numbness in her hands and feet from neuropathy. She is bruises easily. She is weak, tired and fatigued. PAST MEDICAL HISTORY Insignificant. PAST SURGICAL HISTORY 1. Partial hysterectomy with left ovary still intact, done in 1978. 2. Left breast mastectomy and left axillary lymph node dissection done on February 04, 2016. SOCIAL HISTORY The patient is . She has three children. 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 She has about one drink per week. Never smoked. No abuse of illicit drugs. FAMILY HISTORY Negative for cancer or blood diseases. CURRENT MEDICATIONS 1. Zofran 8 mg q.8h. p.r.n. for nausea and vomiting. 2. Ativan 1 mg q.6h. p.r.n. for nausea and vomiting. 3. Compazine 10 mg q.6h. p.r.n. for nausea and vomiting. 4. Letrozole 2.5 mg daily. 5. Vitamin D supplement. 6. Actonel 35 mg weekly. ALLERGIES No known drug allergies. REVIEW OF SYSTEMS CONSTITUTIONAL: Patient has hot flashes. HEENT: Ears: No tinnitus or hearing problem. Nose: She has nasal discharge. Throat: No sore throat or mouth ulcers. Eyes: No diplopia or visual changes. RESPIRATORY: She has dry cough. CARDIOVASCULAR: No chest pain, orthopnea, or paroxysmal nocturnal dyspnea (PND). No edema. No palpitations. GASTROINTESTINAL: She has constipation. GENITOURINARY: No hematuria or dysuria. MUSCULOSKELETAL: She has pain at the site of radiation therapy, getting better. NEUROLOGICAL: She has tingling and numbness in her hands and feet. HEMATOLOGIC/LYMPHATIC: She bruises easily. She is weak, tired and fatigued. SKIN: No skin rash or lumps. PSYCHIATRIC: No anxiety or depression. PHYSICAL EXAMINATION GENERAL: Looks stable. Well-developed, well-nourished, and in no acute distress. VITAL SIGNS: Blood pressure 114/76, pulse 80 per minute, respirations 16 per minute, temperature 97.7, pulse ox 93% on room air. HEENT: Head: Atraumatic. No sinus tenderness to palpation. Eyes: No icterus or conjunctivitis. Mouth and throat: No oral thrush or mucositis. NECK: Supple. No cervical or supraclavicular lymphadenopathy. LUNGS: Clear to auscultation and percussion bilaterally. HEART: Regular rate and rhythm. No gallops, murmurs, clicks or rubs. ABDOMEN: Soft and lax. No tenderness. No hepatosplenomegaly. No masses. EXTREMITIES: No cyanosis, clubbing or edema. LYMPHATICS: No peripheral lymphadenopathy. NEUROLOGICAL: Conscious, alert and oriented times three. No focal motor or sensory deficits. PSYCHIATRIC: Mood and affect appear normal. SKIN: No skin rash, bruise or purpuric eruption. DIAGNOSTIC DATA CBC showed white count 5.6, hemoglobin 14.9, hematocrit 43.2, platelet 293,000. Chem panel is totally normal except alk phos is 137. CA 15-3 is 42, which is down from 50, and CA 27-29 is 46.5, up from 44.5. DEXA scan on May 09, 2018 showed osteoporosis of the lumbar spine with T-score -2.7, osteopenia of the left femoral neck with T-score -2.3 and left total hip osteopenia with T-score -2. ASSESSMENT 1. Stage IIIA (pT2 pN2a cM0) left breast cancer, ER/CT positive, HER2/jeo negative by FISH. Patient received neoadjuvant chemotherapy for four cycles with dose-dense AC with Adriamycin and cyclophosphamide between August 23, 2015 through October 08, 2015. This was followed by 12 weekly doses of Taxol received between October 22, 2015 through January 08, 2016. After that, patient had left breast mastectomy and left axillary lymph node dissection done February 04, 2016. She started adjuvant hormonal therapy with letrozole 2.5 mg daily on March 17, 2016. She is doing fine currently. Her tumor markers with CA 27- 29, CA 15-3 are showing fluctuation of their levels but generally speaking they are stable. Because of her fluctuation of her markers, PET CT scan done on February 22, 2018 did not show any evidence of FDG avid metastatic disease. I am planning to continue the same treatment. I will see her again in three months with CBC, chem panel, CA 27-29 and CA 15-3. 2. Osteoporosis of the lumbar spine with T-sore -2.7 and osteopenia of the left femoral neck with T-score -2.3 and osteopenia of the left hip with T-score -2 by DEXA scan done on May 09, 2018. Given that the patient is currently on letrozole, I am planning to treat her with Prolia 60 mg subcutaneously every six months. I advised the patient to see her dentist for dental evaluation and treatment and after she does that we will start her Prolia every six months at 60 mg subcutaneously. 3. Vitamin D deficiency. She is currently on vitamin D supplement 5000 units daily. 4. Chemotherapy-induced neuropathy, stable. Will continue to monitor. PLAN 1. Letrozole 2.5 mg daily. 2. Vitamin D 5000 units daily. 3. Prolia 60 mg subcutaneously every six months. 4. Patient to return in three months with CBC, chem panel, CA 27-29 and CA 15-3. 5. Patient is to contact us for any new concerns or complaints. MTDD
[2018-08-06 08:19] VITALS: BP 129/101
[2018-08-06 08:21] LABS: PLATELET COUNT, AUTOMATED 278 K/uL (150-450)
--- NOTE | 2018-08-09 17:00 | RADIOLOGY IMAGING REPORT ---
FACILITY: [facility] [place] PATIENT NAME: LLOYD DIANA : [id number] MR: [id number] V: [id number] EXAM DATE: [id number] ORDERING PHYSICIAN: LILIBETH LEWIS TECHNOLOGIST: Bianca Evans PROCEDURE: MAMMOGRAM SCREENING RIGHT UNILATERAL WITH CAD ASSISTED INTERPRETATION & 3D TOMOSYNTHESIS COMPARISON: Prior mammograms 07/28/17, 07/20/16, 07/27/15. INDICATIONS: SCREENING FINDINGS: The patient has had a prior Left mastectomy for breast cancer. The Right breast is heterogeneously dense which can obscure small masses. The parenchymal pattern has remained stable allowing for difference in mammographic technique & patient positioning. DIAGNOSTIC CATEGORY 1--NEGATIVE. RECOMMENDATIONS: ROUTINE MAMMOGRAM AND CLINICAL EVALUATION. IMPRESSION: BIRADS 1: Negative. No significant abnormality of the Right breast is seen. Dictated by: Tangela Morin M.D. on 08/09/2018 at 15:32 Transcribed by: BILLY on 08/09/2018 at 15:55 Approved by: Tangela Morin M.D. on 08/09/2018 at 16:58 [facility]
== END 2018-08-09 ==
LOC: SPU 08:00
PROVIDERS: ATTEND Internal Medicine Hematology
DX: C50.912 Malignant neoplasm of unspecified site of left female breast (principal); Z17.0 Estrogen receptor positive status [ER+]; Z79.811 Long term (current) use of aromatase inhibitors; Z92.21 Personal history of antineoplastic chemotherapy; Z92.3 Personal history of irradiation; M85.80 Other specified disorders of bone density and structure, unspecified site; E55.9 Vitamin D deficiency, unspecified; G62.0 Drug-induced polyneuropathy; R53.1 Weakness; R53.83 Other fatigue; R05 Cough; Z12.31 Encounter for screening mammogram for malignant neoplasm of breast
CPT/HCPCS: 36415; 77063; 77067; 85025; 86300; G0463; 82040; 82247; 82310; 82374; 82435; 82565; 82947; 84075; 84132; 84155; 84295; 84450; 84460; 84520; 99212

== ENCOUNTER 2018-08-10 07:03 | Outpatient (RCR) | payer MEDICARE, BC ==
[2016-02-05 11:14] VITALS: Wt 75.6 kg
[2018-08-10 12:58] VITALS: BP 126/81
--- NOTE | 2018-08-10 18:54 | [facility] ONCOLOGY NOTE ---
EVENT DATE: August 10, 2018 DIAGNOSIS Stage IIIA left breast cancer. CHIEF COMPLAINT Patient is here today for followup of her left breast cancer on adjuvant hormonal therapy with letrozole. ONCOLOGY HISTORY The patient is a 68-year-old postmenopausal woman with insignificant past medical history except for partial hysterectomy with left ovary left intact done in 1978, who palpated a mass in the left breast recently. Bilateral diagnostic digital mammogram done on July 27, 2015, did reveal at least two, possibly three masses, which are extremely dense, irregular, and spiculated, one measuring 2.8 cm in diameter, one measuring approximately 2 cm in diameter, with fibrotic stranding toward the left pectoralis muscle which appears to be tented anteriorly toward the mass. There is also nipple retraction on the left and skin indentation along the medial aspect of the left breast. Left breast ultrasound done on July 27, 2015, did reveal several irregular shadowing hypoechoic masses. Ultrasound/core needle biopsy of the two separate masses in the left breast, one in the 9 o'clock lateral position and one in the 10 o'clock medial position. Bilateral breast MRI done on August 06, 2015, revealed two spiculated masses seen on the medial left breast, one at 9 o'clock extending to the skin where there was adjuvant skin thickening and skin retraction. This measured 2 cm. The second lesion at 10 o'clock measured 2.7 cm with suggestion of several adjuvant small satellite lesions as well. The 10 o'clock mass is tenting the left pectoralis muscle anteriorly, but no abnormal enhancement identified within the pectoralis muscle, although immediately deep to the area of tenting, abnormal enhancement seen at the left costochondral articulation, worrisome for metastasis in the left rib/cartilage. There appears to be nipple retraction to the left. No axillary lymphadenopathy or internal mammary adenopathy seen. The patient started neoadjuvant chemotherapy with dose-dense AC with Adriamycin and cyclophosphamide on August 27, 2015, after evaluation by Dr. Diaz, her surgeon. The patient completed four courses of dose-dense AC chemotherapy on October 08, 2015. The patient started adjuvant weekly Taxol therapy on October 22, 2015. The patient completed 12 weekly courses of Taxol on January 08, 2016. Following neoadjuvant chemotherapy, the patient had left breast mastectomy and left axillary lymph node dissection done on February 04, 2016. The pathology came back positive for 2.5 cm invasive, poorly differentiated ductal carcinoma. Twelve lymph nodes sampled were positive for metastasis, so the patient's tumor was staged as stage IIIA (pT2 pN2a cM0). The patient started treatment with letrozole on March 17, 2016. HISTORY OF PRESENT ILLNESS Patient is here today for followup of her left breast cancer on adjuvant hormonal therapy with letrozole. She is doing fine currently. She is complaining of some hot flashes. She has occasional epistaxis, especially on blowing the nose. She has pain at the site of radiation therapy over the left side of her neck and shoulder. She has neuropathy with tingling and numbness in the hands and toes. PAST MEDICAL HISTORY Insignificant. PAST SURGICAL HISTORY 1. Partial hysterectomy with left ovary still intact, done in 1978. 2. Left breast mastectomy and left axillary lymph node dissection done on February 04, 2016. SOCIAL HISTORY The patient is . She has three children. 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 She has about one drink per week. Never smoked. No abuse of illicit drugs. FAMILY HISTORY Negative for cancer or blood diseases. CURRENT MEDICATIONS 1. Zofran 8 mg q.8 hours p.r.n. for nausea and vomiting. 2. Ativan 1 mg q.6 hours p.r.n. for nausea and vomiting. 3. Compazine 10 mg q.6 hours p.r.n. for nausea and vomiting. 4. Letrozole 2.5 mg daily. 5. Vitamin D supplement. 6. Actonel 35 mg weekly. ALLERGIES No known drug allergies. REVIEW OF SYSTEMS CONSTITUTIONAL: She has hot flashes. HEENT: Ears: No tinnitus or hearing problem. Nose: She has occasional epistaxis on blowing her nose. Throat: No sore throat or mouth ulcers. Eyes: No diplopia or visual changes. RESPIRATORY: No shortness of breath. No cough, expectoration, or hemoptysis. CARDIOVASCULAR: No chest pain, orthopnea, or paroxysmal nocturnal dyspnea (PND). No edema. No palpitations. GASTROINTESTINAL: No nausea or vomiting. No diarrhea or constipation. No change in bowel movements. No heartburn or swallowing difficulties. No abdominal pain. No jaundice. No hematemesis, melena, or rectal bleeding. GENITOURINARY: No hematuria or dysuria. MUSCULOSKELETAL: She has pain at the site of radiation therapy over the left shoulder and left side of the neck. NEUROLOGIC: She has neuropathy with tingling or numbness in her fingers and toes. No headaches or convulsions. HEMATOLOGIC/LYMPHATIC: No bleeding or easy bruising. No weakness or fatigue. No enlarged lymph nodes. SKIN: No skin rash or lumps. PSYCHIATRIC: No anxiety or depression. PHYSICAL EXAMINATION GENERAL: Looks stable. Well developed, well nourished, and in no acute distress. VITAL SIGNS: Blood pressure 126/81, pulse 96 per minute, respirations 16 per minute, temperature 97.7, pulse ox 92% on room air. HEENT: Head: Atraumatic. No sinus tenderness to palpation. Eyes: No icterus or conjunctivitis. Mouth and throat: No oral thrush or mucositis. NECK: Supple. No cervical or supraclavicular lymphadenopathy. LUNGS: Clear to auscultation and percussion bilaterally. HEART: Regular rate and rhythm. No gallops, murmurs, clicks, or rubs. ABDOMEN: Soft and lax. No tenderness. No hepatosplenomegaly. No masses. EXTREMITIES: No cyanosis, clubbing, or edema. LYMPHATICS: No peripheral lymphadenopathy. NEUROLOGIC: Conscious, alert, and oriented x3. No focal motor or sensory deficits. PSYCHIATRIC: Mood and affect appear normal. SKIN: No skin rash, bruise, or purpuric eruption. DIAGNOSTIC DATA CBC showed white count 5.1, hemoglobin 14.7, hematocrit 43.8, platelet 278,000. Chem panel is totally normal except chloride 108, alkaline phosphatase 143. CA15-3 is 41, down from 42, and CA27.29 is 45.8, down from 46.5. ASSESSMENT 1. Stage IIIA (pT2 pN2a cM0) left breast cancer, ER/DE positive, HER2/joe negative by FISH. Patient received neoadjuvant chemotherapy for four cycles with dose-dense AC with Adriamycin and cyclophosphamide between August 23, 2015, through October 08, 2015. This was followed by 12 weekly doses of Taxol received between October 22, 2015, through January 08, 2016. After that, patient had left breast mastectomy and left axillary lymph node dissection done February 04, 2016. She started adjuvant hormonal therapy with letrozole 2.5 mg daily on March 17, 2016. She is doing very well currently. Tumor markers with CA27.29 and CA15-3 showed fluctuation lately. Her CA15-3 is 41, down from 42, and CA27.29 is 45.8, down from 46.5. I plan to continue to monitor with her next visit, so I am planning to see her in three months with CBC, chemistry panel, CA27.29, and CA15-3. For rising of her tumor markers, patient had a PET/CT scan done February 22, 2018, which did not show any evidence of recurrence or metastatic disease. 2. Osteoporosis of the lumbar spine with T-score -2.7 and osteopenia of the left femoral neck with T-score -2.3 and osteopenia of the left hip with T-score -2 by DEXA scan done May 09, 2018. Patient is waiting to see her dentist to decide after that about treatment with Xgeva. 3. Vitamin D deficiency. She is currently on vitamin D supplement 5000 units daily. 4. Chemotherapy-induced neuropathy, which is stable. PLAN 1. Letrozole 2.5 mg daily. 2. Vitamin D 5000 units daily. 3. Prolia 60 mg subcutaneously every six months. 4. Patient to return in three months with CBC, chem panel, CA27.29, and CA15-3. 5. Patient is to contact us for any new concern or complaints. MTDD
== END 2018-08-21 08:36 | disposition home or self-care (01) ==
LOC: SPU 07:03
PROVIDERS: ATTEND Internal Medicine Hematology
DX: C50.912 Malignant neoplasm of unspecified site of left female breast (principal); Z17.0 Estrogen receptor positive status [ER+]; Z79.811 Long term (current) use of aromatase inhibitors; Z92.21 Personal history of antineoplastic chemotherapy; Z92.3 Personal history of irradiation; M85.80 Other specified disorders of bone density and structure, unspecified site; E55.9 Vitamin D deficiency, unspecified; G62.0 Drug-induced polyneuropathy; R53.1 Weakness; R53.83 Other fatigue; R05 Cough; R04.0 Epistaxis; R20.2 Paresthesia of skin; Z90.12 Acquired absence of left breast and nipple
CPT/HCPCS: 99212

== ENCOUNTER → 2019-02-07 | Outpatient (RCR) | payer MEDICARE, BC ==
[2016-02-05 11:14] VITALS: Wt 76.1 kg
--- NOTE | 2018-09-11 14:12 | NUR ---
Called in a refill to [facility] for letrozole 2.5 mg tablets. SIG: Take 1 tablet PO daily, disp #90 refill X3.
[2018-11-12 07:42] VITALS: BP 114/74
[2018-11-12 07:55] LABS: PLATELET COUNT, AUTOMATED 250 K/uL (150-450)
[2018-11-14 12:45] VITALS: BP 119/78
--- NOTE | 2018-11-14 18:03 | ONCOLOGY FOLLOW UP NOTE ---
EVENT DATE: November 14, 2018 DIAGNOSIS Stage IIIA left breast cancer. CHIEF COMPLAINT Patient is here today for followup of her left breast cancer on adjuvant hormonal therapy with letrozole. ONCOLOGY HISTORY The patient is a 68-year-old postmenopausal woman with insignificant past medical history except for partial hysterectomy with left ovary left intact done in 1978, who palpated a mass in the left breast recently. Bilateral diagnostic digital mammogram done on July 27, 2015, did reveal at least two, possibly three masses, which are extremely dense, irregular, and spiculated, one measuring 2.8 cm in diameter, one measuring approximately 2 cm in diameter, with fibrotic stranding toward the left pectoralis muscle which appears to be tented anteriorly toward the mass. There is also nipple retraction on the left and skin indentation along the medial aspect of the left breast. Left breast ultrasound done on July 27, 2015, did reveal several irregular shadowing hypoechoic masses. Ultrasound/core needle biopsy of the two separate masses in the left breast, one in the 9 o'clock lateral position and one in the 10 o'clock medial position. Bilateral breast MRI done on August 06, 2015, revealed two spiculated masses seen on the medial left breast, one at 9 o'clock extending to the skin where there was adjuvant skin thickening and skin retraction. This measured 2 cm. The second lesion at 10 o'clock measured 2.7 cm with suggestion of several adjuvant small satellite lesions as well. The 10 o'clock mass is tenting the left pectoralis muscle anteriorly, but no abnormal enhancement identified within the pectoralis muscle, although immediately deep to the area of tenting, abnormal enhancement seen at the left costochondral articulation, worrisome for metastasis in the left rib/cartilage. There appears to be nipple retraction to the left. No axillary lymphadenopathy or internal mammary adenopathy seen. The patient started neoadjuvant chemotherapy with dose-dense AC with Adriamycin and cyclophosphamide on August 27, 2015, after evaluation by Dr. Diaz, her surgeon. The patient completed four courses of dose-dense AC chemotherapy on October 08, 2015. The patient started adjuvant weekly Taxol therapy on October 22, 2015. The patient completed 12 weekly courses of Taxol on January 08, 2016. Following neoadjuvant chemotherapy, the patient had left breast mastectomy and left axillary lymph node dissection done on February 04, 2016. The pathology came back positive for 2.5 cm invasive, poorly differentiated ductal carcinoma. Twelve lymph nodes sampled were positive for metastasis, so the patient's tumor was staged as stage IIIA (pT2 pN2a cM0). The patient started treatment with letrozole on March 17, 2016. HISTORY OF PRESENT ILLNESS Ms. Beltre is here today for followup for her left breast cancer. She is accompanied in the office by her . She is currently on adjuvant hormonal therapy with letrozole. She reports doing well since her last visit. She does have some hot flashes, but reports that these are only occasional and are not interfering with ADLs. She does still have some persistent neuropathy with numbness and tingling in hands and toes, most noticeable in her hands. She also still has some occasional pain at the site of radiation therapy over the left side of her neck and shoulder. She attended physical therapy for this and reports that this has generally improved. Otherwise, she has no complaints. She has not had any recent fevers, chills, or night sweats. No changes in stool. No mood changes. Appetite and weight are stable. She reports good compliance with letrozole. PAST MEDICAL HISTORY Insignificant. PAST SURGICAL HISTORY 1. Partial hysterectomy with left ovary still intact, done in 1978. 2. Left breast mastectomy and left axillary lymph node dissection done on February 04, 2016. SOCIAL HISTORY The patient is . She has three children. 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 She has about one drink per week. Never smoked. No abuse of illicit drugs. FAMILY HISTORY Negative for cancer or blood diseases. CURRENT MEDICATIONS 1. Zofran 8 mg q.8 hours p.r.n. for nausea and vomiting. 2. Ativan 1 mg q.6 hours p.r.n. for nausea and vomiting. 3. Compazine 10 mg q.6 hours p.r.n. for nausea and vomiting. 4. Letrozole 2.5 mg daily. 5. Vitamin D supplement. 6. Actonel 35 mg weekly. ALLERGIES No known drug allergies. REVIEW OF SYSTEMS CONSTITUTIONAL: Patient denies any recent fevers, chills, or night sweats. No recent infections. HEENT: No vision changes. No tinnitus. No mouth sores. No dysphagia or odynophagia. RESPIRATORY: No shortness of breath. No cough, sputum production, or hemoptysis. No pleuritic chest pain. CARDIOVASCULAR: No chest pain. No syncope or presyncope. GASTROINTESTINAL: No abdominal pain, nausea, vomiting, diarrhea, constipation, bright red blood per rectum, or melena. Appetite is normal.. GENITOURINARY: No dysuria, hematuria, or unexplained vaginal bleeding. MUSCULOSKELETAL: She continues to have some occasional pain on the left side of her neck and shoulder at prior radiation site. She reports that this has improved in general overall. NEUROLOGIC: She continues to have some neuropathy with numbness and tingling in her fingers and toes bilaterally. No headaches. No seizure activity. ENDOCRINE: She reports ongoing vasomotor symptoms. Her hot flashes have not worsened and are quite manageable. SKIN: No rash. No generalized pruritus. No suspicious lumps or bumps. PSYCHIATRIC: She denies any severe anxiety, severe depression, suicidal or homicidal ideation. She's in good spirits. Remainder of a 12-point review of systems is performed today and is otherwise negative. PHYSICAL EXAMINATION VITAL SIGNS: Weight 162.5 pounds. T 98.1, P 70, R 16, BP 119/78, oxygen saturation 95% room air. GENERAL: In general, this is a pleasant 68-year-old woman who appears well hydrated, well nourished, and is in no acute distress. HEAD: Atraumatic, normocephalic. EYES: Sclerae anicteric. ENT, MOUTH: Moist mucous membranes. No mouth sores. NECK: Supple. No lymphadenopathy. She does have some occasional left-sided neck pain, see Interval History. LUNGS: Clear to auscultation bilaterally. HEART: Regular rate and rhythm. No ectopy. ABDOMEN: Soft, nontender, nondistended. Bowel sounds positive x4. EXTREMITIES: No clubbing, cyanosis, or edema. NEUROLOGIC: Patient is awake, alert, and oriented x3. No focal motor or sensory deficits. PSYCHIATRIC: Mood and affect are appropriate. DERM: No rash, petechiae, or purpura. MUSCULOSKELETAL: Gait and ambulation are steady. LABORATORY CBC on 11/12/18: WBC 5.0, ANC 2.9, hemoglobin 14.8, hematocrit 43.2%, platelet 250,000. CMP today: Sodium 141, potassium 4.0, all normal, serum creatinine normal, 0.90, glucose normal, 101, calcium 9.7, total bilirubin 1.1, AST 25, ALT 16, alkaline phosphatase decreased and down to normal at 117. Total protein normal at 7.7 with albumin 4.5. Tumor markers: CA15-3 is 36, improved from previous 41 on 08/06/18. CA27.29 is 43.5, improved from previous 45.8 on 08/06/18. IMPRESSION AND PLAN This is a very pleasant 68-year-old woman with stage IIIA (pT2 pN2a cM0) left breast cancer, ER/IL positive, HER2/joe negative by FISH. Patient received neoadjuvant chemotherapy for four cycles with dose-dense AC with Adriamycin and cyclophosphamide between August 23, 2015, through October 08, 2015. This was followed by 12 weekly doses of Taxol received between October 22, 2015, through January 08, 2016. After that, patient had left breast mastectomy and left axillary lymph node dissection done February 04, 2016. She started adjuvant hormonal therapy with letrozole 2.5 mg daily on March 17, 2016. Overall, she is tolerating treatment quite well. Her CA27.29 has improved and is down to 43.5, previously 45.8. Her CA15-3 is improved, down to 36 from previous 41. Since she did have rising tumor markers, she had a PET CT done on 02/22/18, which did not show any evidence of recurrence or metastatic disease. Lastly, we did recommend that she start treatment with Prolia, though at her last visit, we did not initiate this so that she could see her dentist first. She saw her dentist two to three weeks ago and reports she had a molar filled, but otherwise no other dental work is planned. Dentist stated she can start Prolia. She denies any pain. 1. Patient will continue with letrozole 2.5 mg daily. 2. Patient will continue vitamin D 5000 units daily in addition to calcium. 3. We will initiate Prolia 60 mg subcutaneously semi-annually. I have written orders for that today. We will need to call her to get her scheduled for this. 4. Patient will return to clinic in three months for followup. We will have labs just prior to her visit to include CBC, CMP, CA27.29, and CA15-3. 5. She will contact us in the interim for any new issues. MTDD
[2019-01-31 08:35] VITALS: BP 117/90
[2019-01-31 08:57] LABS: PLATELET COUNT, AUTOMATED 240 K/uL (150-450)
[~2019-02-07] MED LIST changes: -PENT400T57 PO; +PENT400T83 PO
[2019-02-07 13:20] VITALS: BP 105/70
--- NOTE | 2019-02-07 14:16 | [facility] ONCOLOGY NOTE ---
EVENT DATE: February 07, 2019 DIAGNOSIS Stage IIIA left breast cancer. CHIEF COMPLAINT Patient is here today for followup of her left breast cancer, on adjuvant hormonal therapy with letrozole. ONCOLOGY HISTORY The patient is a 68-year-old postmenopausal woman with insignificant past medical history except for partial hysterectomy with left ovary left intact done in 1978, who palpated a mass in the left breast recently. Bilateral diagnostic digital mammogram done on July 27, 2015, did reveal at least two, possibly three masses, which are extremely dense, irregular, and spiculated, one measuring 2.8 cm in diameter, one measuring approximately 2 cm in diameter, with fibrotic stranding toward the left pectoralis muscle which appears to be tented anteriorly toward the mass. There is also nipple retraction on the left and skin indentation along the medial aspect of the left breast. Left breast ultrasound done on July 27, 2015, did reveal several irregular shadowing hypoechoic masses. Ultrasound/core needle biopsy of the two separate masses in the left breast, one in the 9 o'clock lateral position and one in the 10 o'clock medial position. Bilateral breast MRI done on August 06, 2015, revealed two spiculated masses seen on the medial left breast, one at 9 o'clock extending to the skin where there was adjuvant skin thickening and skin retraction. This measured 2 cm. The second lesion at 10 o'clock measured 2.7 cm with suggestion of several adjuvant small satellite lesions as well. The 10 o'clock mass is tenting the left pectoralis muscle anteriorly, but no abnormal enhancement identified within the pectoralis muscle, although immediately deep to the area of tenting, abnormal enhancement seen at the left costochondral articulation, worrisome for metastasis in the left rib/cartilage. There appears to be nipple retraction to the left. No axillary lymphadenopathy or internal mammary adenopathy seen. The patient started neoadjuvant chemotherapy with dose-dense AC with Adriamycin and cyclophosphamide on August 27, 2015, after evaluation by Dr. Diaz, her surgeon. The patient completed four courses of dose-dense AC chemotherapy on October 08, 2015. The patient started adjuvant weekly Taxol therapy on October 22, 2015. The patient completed 12 weekly courses of Taxol on January 08, 2016. Following neoadjuvant chemotherapy, the patient had left breast mastectomy and left axillary lymph node dissection done on February 04, 2016. The pathology came back positive for 2.5 cm invasive, poorly differentiated ductal carcinoma. Twelve lymph nodes sampled were positive for metastasis, so the patient's tumor was staged as stage IIIA (pT2 pN2a cM0). The patient started treatment with letrozole on March 17, 2016. HISTORY OF PRESENT ILLNESS Patient is here today for followup of her left breast cancer, on adjuvant hormonal therapy with letrozole. She is doing fine currently. She has hot flashes. She has nasal discharge. She has occasional diarrhea. She has cramps in her legs, especially at night. She has tingling and numbness in her hands and feet. She bruises easily. PAST MEDICAL HISTORY Insignificant. PAST SURGICAL HISTORY 1. Partial hysterectomy with left ovary still intact, done in 1978. 2. Left breast mastectomy and left axillary lymph node dissection done on February 04, 2016. SOCIAL HISTORY The patient is . She has three children. 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 She has about one drink per week. Never smoked. No abuse of illicit drugs. FAMILY HISTORY Negative for cancer or blood diseases. CURRENT MEDICATIONS 1. Zofran 8 mg q.8 hours p.r.n. for nausea and vomiting. 2. Ativan 1 mg q.6 hours p.r.n. for nausea and vomiting. 3. Compazine 10 mg q.6 hours p.r.n. for nausea and vomiting. 4. Letrozole 2.5 mg daily. 5. Vitamin D supplement. 6. Actonel 35 mg weekly. ALLERGIES No known drug allergies. REVIEW OF SYSTEMS CONSTITUTIONAL: She has hot flashes. HEENT: Ears: No tinnitus or hearing problem. Nose: She has nasal discharge. Throat: No sore throat or mouth ulcers. Eyes: No diplopia or visual changes. RESPIRATORY: No shortness of breath. No cough, expectoration, or hemoptysis. CARDIOVASCULAR: No chest pain, orthopnea, or paroxysmal nocturnal dyspnea (PND). No edema. No palpitations. GASTROINTESTINAL: She has diarrhea. GENITOURINARY: No hematuria or dysuria. MUSCULOSKELETAL: She has cramps in her legs occasionally. NEUROLOGIC: She has tingling and numbness in the fingers and toes. HEMATOLOGIC/LYMPHATIC: She bruises easily. SKIN: No skin rash or lumps. PSYCHIATRIC: No anxiety or depression. PHYSICAL EXAMINATION GENERAL: Looks stable. Well developed, well nourished, and in no acute distress. VITAL SIGNS: Blood pressure 105/70, pulse 82 per minute, respirations 16 per minute, temperature 97.3, pulse ox 95% on room air. HEENT: Head: Atraumatic. No sinus tenderness to palpation. Eyes: No icterus or conjunctivitis. Mouth and throat: No oral thrush or mucositis. NECK: Supple. No cervical or supraclavicular lymphadenopathy. LUNGS: Clear to auscultation and percussion bilaterally. HEART: Regular rate and rhythm. No gallops, murmurs, clicks, or rubs. ABDOMEN: Soft and lax. No tenderness. No hepatosplenomegaly. No masses. EXTREMITIES: No cyanosis, clubbing, or edema. LYMPHATICS: No peripheral lymphadenopathy. NEUROLOGIC: Conscious, alert, and oriented x3. No focal motor or sensory deficits. PSYCHIATRIC: Mood and affect appear normal. SKIN: No skin rash, bruise, or purpuric eruption. DIAGNOSTIC DATA CBC showed white count 4.9, hemoglobin 15.2, hematocrit 43.2, platelet 240,000. Chem panel is totally normal. CA15-3 is 39, up from 36. CA27.29 is 37.5, down from 43.5. ASSESSMENT 1. Stage IIIA (pT2 pN2a cM0) left breast cancer, ER/MA positive, HER2/joe negative by FISH. Patient received neoadjuvant chemotherapy for four cycles with dose-dense AC with Adriamycin and cyclophosphamide between August 23, 2015, through October 08, 2015. This was followed by 12 weekly doses of Taxol received between October 22, 2015, through January 08, 2016. After that, patient had left breast mastectomy and left axillary lymph node dissection February 04, 2016. She started adjuvant hormonal therapy with letrozole 2.5 mg on March 17, 2016. She is doing well currently. Tumor markers with CA27.29 and CA15-3 showed fluctuation lately but they are stable. Her CA15-3 was 41, then became 36 and currently 39. CA27.29 was 45.8, then 43.5 and currently 37.5. I am planning to continue same treatment. I will see her again in three months with CBC, chem panel, CA27.29, CA15-3. 2. Osteoporosis of the lumbar spine with T-score -2.7 and osteopenia of the left femoral neck with T-score -2.3 and osteopenia of the left hip with T-score -2 by DEXA scan done May 09, 2018. Patient currently using Boniva 150 mg monthly. We will monitor her DEXA scan to see if she has responded to the current treatment at least a year from starting Boniva. 3. Vitamin D deficiency. She is currently on vitamin D supplement 5000 units daily. 4. Chemotherapy-induced neuropathy, which is stable. PLAN 1. Letrozole 2.5 mg daily. 2. Vitamin D 5000 units daily. 3. Boniva 150 mg monthly. 4. Patient to return in three months with CBC, chem panel, CA27.29, and CA15-3. 5. Patient is to contact us for any new concern or complaints. MTDD
== END ==
LOC: SPU 11-09 13:47 → ONC 11-14 12:31 → SPU 01-31 08:12 → ONC 13:19
PROVIDERS: ATTEND Internal Medicine Hematology
DX: C50.912 Malignant neoplasm of unspecified site of left female breast (principal); Z17.0 Estrogen receptor positive status [ER+]; Z79.811 Long term (current) use of aromatase inhibitors; Z92.21 Personal history of antineoplastic chemotherapy; G62.0 Drug-induced polyneuropathy; T45.1X5A Adverse effect of antineoplastic and immunosuppressive drugs, initial encounter; E55.9 Vitamin D deficiency, unspecified
CPT/HCPCS: 36415; 85025; 86300; G0463; 82040; 82247; 82310; 82374; 82435; 82565; 82947; 84075; 84132; 84155; 84295; 84450; 84460; 84520; 99212